=== PATIENT | male | born 1955 | race African-American/Black ===

== ENCOUNTER 2021-09-25 08:18 | Inpatient (IN) | payer MEDICARE, OTHER ==
[~2021-09-25] VITALS: Ht 175.3 cm; Wt 68.6 kg
[~2021-09-25 08:18] MED LIST: LISI2.5T47
[2021-09-25 09:15] LABS: Basophils # (auto) 0 10 ^3/uL (0-0.2); Basophils % (auto) 0.5 % (0.0-2.0); Eosinophils # (auto) 0.1 10 ^3/uL (0-0.8); Eosinophils % (auto) 1.4 % (0.0-7.0); Hematocrit 42.1 % (41.0-53.0); Hemoglobin 14.3 g/dL (13.5-17.5); Lymphocytes # (auto) 1.2 10 ^3/uL (0.4-5.4); Lymphocytes % (auto) 17.9 % (10.0-50.0); Mean Corpuscular Hemoglobin 28.6 pg (28.0-32.0); Mean Corpuscular Hgb Conc. 34.1 g/dL (32.0-36.0); Monocytes # (auto) 0.8 10 ^3/uL (0-1.3); Monocytes % (auto) 11.3 % (0.0-12.0); Neutrophils # (auto) 4.6 10 ^3/uL (1.6-8.6); Neutrophils % (auto) 68.9 % (37.0-80.0); Nucleated Red Blood Cells % 0.2 %; Red Blood Cells 5.01 10^6/uL (4.5-5.90); Red Cell Distribution Width 14.9 % (11.8-14.3); White Blood Cell 6.6 10^3/uL (4.4-10.8)
[2021-09-25 09:27] LABS: INR 1.03 (0.9-1.15); Partial Thromboplastin Time 27.1 sec (23.6-33.0)
[2021-09-25 09:31] LABS: Albumin 3.8 g/dL (3.4-5.0); BUN/Creatinine Ratio 10.7; Calcium 8.8 mg/dL (8.5-10.1); Magnesium 2.5 mg/dL (1.6-2.6)
[2021-09-25 09:34] LABS: Bilirubin, Total 0.6 mg/dL (0.2-1.0); Total Protein 7.8 g/dL (6.4-8.2)
[2021-09-25] MEDS: MAGNESIUM SULFATE 1GM/100ML 100 ML IV SCH ×2 (14:10→15:17)
[2021-09-25] MEDS ORDERED: MORPHINE SULFATE INJ 2 MG/ml SYRG IV PRN (15:30)
[2021-09-25] MEDS ORDERED: NITROGLYCERIN 0.4 MG SL TAB SL PRN (15:30)
[2021-09-25] MEDS ORDERED: ONDANSETRON HCL 4 MG/2 ML VIAL IV PRN ×2 (15:30→16:45)
[2021-09-25 15:31] LABS: Urine Bacteria NONE SEEN /hpf (None Seen); Urine Blood 2+ /uL (Negative); Urine Mucus FEW (None Seen); Urine Specific Gravity 1.021 (1.001-1.035); Urine WBC <1 /hpf (0 - 3)
[2021-09-25] MEDS ORDERED: ATORVASTATIN 20 MG TAB PO ONE (16:45)
[2021-09-25] MEDS ORDERED: BENAZEPRIL HCL 10 MG TAB PO ONE (16:45)
[2021-09-25] MEDS ORDERED: ASPirin 81 mg TAB PO ONE (16:45)
[2021-09-25] MEDS ORDERED: DOCUSATE SOD 100 MG CAP PO PRN (16:45)
[2021-09-25] MEDS ORDERED: HYDROcodone-ACET 5/325MG TAB PO PRN (16:45)
[2021-09-25 17:17] LABS: Magnesium 2.3 mg/dL (1.6-2.6); Phosphorus 3.1 mg/dL (2.5-4.90)
[2021-09-25] MEDS: ATORVASTATIN 20 MG TAB PO SCH (18:09)
[2021-09-25 20:06] LABS: INR 1.03 (0.9-1.15); Partial Thromboplastin Time 26.8 sec (23.6-33.0)
[2021-09-25 23:03] VITALS: BP 143/83
[2021-09-26 04:51] VITALS: BP 130/78
[2021-09-26 07:00] LABS: Basophils # (auto) 0 10 ^3/uL (0-0.2); Basophils % (auto) 0.5 % (0.0-2.0); Eosinophils # (auto) 0.1 10 ^3/uL (0-0.8); Eosinophils % (auto) 2.2 % (0.0-7.0); Lymphocytes # (auto) 1.2 10 ^3/uL (0.4-5.4); Lymphocytes % (auto) 17.9 % (10.0-50.0); Mean Corpuscular Hemoglobin 28.7 pg (28.0-32.0); Mean Corpuscular Hgb Conc. 34.2 g/dL (32.0-36.0); Mean Corpuscular Volume 84.1 fL (80.0-100.0); Monocytes # (auto) 0.6 10 ^3/uL (0-1.3); Monocytes % (auto) 9.9 % (0.0-12.0); Neutrophils # (auto) 4.5 10 ^3/uL (1.6-8.6); Neutrophils % (auto) 69.5 % (37.0-80.0); Nucleated Red Blood Cells % 0.1 %; Red Blood Cells 5.23 10^6/uL (4.5-5.90); Red Cell Distribution Width 14.9 % (11.8-14.3); White Blood Cell 6.5 10^3/uL (4.4-10.8)
[2021-09-26 07:11] LABS: INR 1.03 (0.9-1.15); Partial Thromboplastin Time 26.9 sec (23.6-33.0)
[2021-09-26 07:16] LABS: Potassium 3.8 mmol/L (3.5-5.1)
[2021-09-26 07:27] LABS: Albumin 3.5 g/dL (3.4-5.0); BUN/Creatinine Ratio 10.5; Bilirubin, Total 0.5 mg/dL (0.2-1.0); CRP High Sensitivity 0.32 mg/dL (< 0.3); Magnesium 2.4 mg/dL (1.6-2.6); Phosphorus 3.3 mg/dL (2.5-4.90); Thyroid Stimulating Hormone 0.61 uIU/mL (0.358-3.74); Total Protein 7.8 g/dL (6.4-8.2); Uric Acid 5.4 mg/dL (3.5-7.2)
[2021-09-26 08:00] VITALS: BP 128/63
[2021-09-26] MEDS: ASPirin 81 mg TAB PO SCH (09:29)
[2021-09-26] MEDS: BENAZEPRIL HCL 10 MG TAB PO SCH (09:30)
[2021-09-26] MEDS: ENOXAPARIN SOD 40 MG/0.4 ML SYRINGE SC SCH (09:31)
[2021-09-26] MEDS ORDERED: FAMOTIDINE (10MG/ML) 2ML VL IV SCH (10:00)
[2021-09-26] MEDS ORDERED: TAMSULOSIN HYDROCHLORIDE 0.4 MG CAP PO ONE (11:15)
[2021-09-26 12:00] VITALS: BP 116/68
[2021-09-26] MEDS: FAMOTIDINE 20 MG TAB PO SCH (12:11)
[2021-09-26 16:00] VITALS: BP 127/82
[2021-09-26 17:06] LABS: Alcohol, Urine < 3.0 mg/dL (0-10); Amphetamine Screen, Urine NEGATIVE (NEGATIVE); Barbiturate Scree,Urine NEGATIVE (NEGATIVE); Benzodiazephine Screen, Urine NEGATIVE (NEGATIVE); Cocaine Screen, Urine NEGATIVE (NEGATIVE); Opiate Scree,Urine NEGATIVE (NEGATIVE); Phencyclidine Screen, Urine NEGATIVE (NEGATIVE); Protein, Urine 18.7 mg/dL (0.0-11.9)
[2021-09-26 17:14] LABS: Cannabinoid Screen, Urine POSITIVE (NEGATIVE)
[2021-09-26 22:00] VITALS: BP 129/74
[2021-09-26] MEDS: ATORVASTATIN 20 MG TAB PO SCH (23:04)
[2021-09-27 04:00] VITALS: BP 156/94
[2021-09-27] MEDS: hydrALAZINE HCL 20 MG/ML VL IV PRN (05:46)
[2021-09-27 05:57] LABS: Cholesterol 130 mg/dL (< 200); HDL Cholesterol 101 mg/dL (40-59); LDL Cholesterol 25 mg/dL (< 100); Triglycerides 41 mg/dL (< 150)
[2021-09-27] MEDS ORDERED: ADENOSINE 60 MG in GIVE UN-DILUTED 0 ML IV ONE (08:07)
[2021-09-27] MEDS: ASPirin 81 mg TAB PO SCH (08:49)
[2021-09-27] MEDS: BENAZEPRIL HCL 10 MG TAB PO SCH (08:49)
[2021-09-27] MEDS: FAMOTIDINE 20 MG TAB PO SCH (08:50)
[2021-09-27] MEDS: ACETAMINOPHEN 325 MG TAB PO PRN (08:50)
[2021-09-27] MEDS: ENOXAPARIN SOD 40 MG/0.4 ML SYRINGE SC SCH (08:51)
[2021-09-27 09:00] VITALS: BP 172/98
[2021-09-27 10:22] VITALS: BP 155/94
[2021-09-27 13:00] VITALS: BP 162/99
[2021-09-27] MEDS: LORazepam 0.5 MG TAB PO PRN (13:52)
[2021-09-27 17:00] VITALS: BP 125/78
[2021-09-27] MEDS: TAMSULOSIN HYDROCHLORIDE 0.4 MG CAP PO SCH (17:24)
[2021-09-27] MEDS: ATORVASTATIN 20 MG TAB PO SCH (21:53)
[2021-09-27 22:00] VITALS: BP 126/91
[2021-09-28] VITALS (7 sets, daily range): BP systolic 146–177; BP diastolic 88–109
[2021-09-28] MEDS: hydrALAZINE HCL 20 MG/ML VL IV PRN ×2 (05:01→14:04)
[2021-09-28] MEDS: ACETAMINOPHEN 325 MG TAB PO PRN ×2 (05:48→14:04)
[2021-09-28] MEDS: MORPHINE SULFATE INJ 2 MG/ml SYRG IV PRN (06:25)
[2021-09-28] MEDS: BENAZEPRIL HCL 10 MG TAB PO SCH (10:09)
[2021-09-28] MEDS: ASPirin 81 mg TAB PO SCH (10:09)
[2021-09-28] MEDS: FAMOTIDINE 20 MG TAB PO SCH (10:09)
[2021-09-28] MEDS: ENOXAPARIN SOD 40 MG/0.4 ML SYRINGE SC SCH (10:09)
[2021-09-28] MEDS: LORazepam 0.5 MG TAB PO PRN (16:40)
[2021-09-28] MEDS: TAMSULOSIN HYDROCHLORIDE 0.4 MG CAP PO SCH (18:26)
[2021-09-28] MEDS: ZOLPIDEM TARTRATE 5 MG TAB PO PRN (22:00)
[2021-09-28] MEDS: ATORVASTATIN 20 MG TAB PO SCH (22:00)
[2021-09-29] VITALS (11 sets, daily range): BP systolic 111–168; BP diastolic 69–111
[2021-09-29] MEDS: ACETAMINOPHEN 325 MG TAB PO PRN (03:44)
[2021-09-29] MEDS: hydrALAZINE HCL 20 MG/ML VL IV PRN (05:56)
[2021-09-29 06:17] LABS: Basophils # (auto) 0 10 ^3/uL (0-0.2); Basophils % (auto) 0.3 % (0.0-2.0); Eosinophils # (auto) 0.1 10 ^3/uL (0-0.8); Eosinophils % (auto) 1.3 % (0.0-7.0); Hemoglobin 13.7 g/dL (13.5-17.5); Lymphocytes # (auto) 1.2 10 ^3/uL (0.4-5.4); Lymphocytes % (auto) 16.3 % (10.0-50.0); Mean Corpuscular Hemoglobin 28.5 pg (28.0-32.0); Mean Corpuscular Hgb Conc. 34.2 g/dL (32.0-36.0); Mean Corpuscular Volume 83.4 fL (80.0-100.0); Monocytes # (auto) 0.7 10 ^3/uL (0-1.3); Monocytes % (auto) 9.9 % (0.0-12.0); Neutrophils # (auto) 5.2 10 ^3/uL (1.6-8.6); Neutrophils % (auto) 72.2 % (37.0-80.0); Nucleated Red Blood Cells % 0.1 %; Red Blood Cells 4.79 10^6/uL (4.5-5.90); Red Cell Distribution Width 14.7 % (11.8-14.3); White Blood Cell 7.2 10^3/uL (4.4-10.8)
[2021-09-29 06:33] LABS: BUN/Creatinine Ratio 16.2; Calcium 8.9 mg/dL (8.5-10.1); Potassium 4.2 mmol/L (3.5-5.1)
[2021-09-29 06:43] LABS: INR 1.01 (0.9-1.15); Partial Thromboplastin Time 27.8 sec (23.6-33.0)
[2021-09-29] MEDS: MORPHINE SULFATE INJ 2 MG/ml SYRG IV PRN (07:00)
[2021-09-29] MEDS: LORazepam 0.5 MG TAB PO PRN (07:24)
[2021-09-29] MEDS ORDERED: cloNIDine HCL 0.1 MG TAB PO ONE (09:30)
[2021-09-29] MEDS: ASPirin 81 mg TAB PO SCH (09:53)
[2021-09-29] MEDS: BENAZEPRIL HCL 10 MG TAB PO SCH (09:56)
[2021-09-29] MEDS: ENOXAPARIN SOD 40 MG/0.4 ML SYRINGE SC SCH (09:58)
[2021-09-29] MEDS ORDERED: IODIXANOL 320MG/ML 100ML BTL IV ONE (12:55)
[2021-09-29] MEDS ORDERED: LIDOCAINE 2%HCL (LOCAL ANESTH.) INJ 10ml MDV ONE (12:55)
[2021-09-29] MEDS ORDERED: ANGIOMAX 250 MG VIAL IV ONE (13:01)
[2021-09-29] MEDS ORDERED: MIDAZOLAM HCL 2MG/2ML 2ml VIAL (1mg/ml) ONE (13:01)
[2021-09-29] MEDS ORDERED: fentaNYL CITRATE 100 MCG/2 ML VL ONE (13:01)
[2021-09-29] MEDS ORDERED: SODIUM CHL 0.9% 0 ML ONE (13:02)
[2021-09-29] MEDS ORDERED: VERAPAMIL 2.5MG/ML INJ 2ML VIAL IV ONE (13:10)
[2021-09-29] MEDS ORDERED: HEPARIN SODIUM (PORCINE) 5000 UNITS/ML 1ML VIAL ONE (13:10)
[2021-09-29] MEDS: TAMSULOSIN HYDROCHLORIDE 0.4 MG CAP PO SCH (18:27)
[2021-09-29] MEDS: ZOLPIDEM TARTRATE 5 MG TAB PO PRN (21:46)
[2021-09-29] MEDS: ATORVASTATIN 20 MG TAB PO SCH (21:46)
[2021-09-30] MEDS ORDERED: guaiFENesin-DM 100/10mg/5ml SYR PO PRN (00:45)
[2021-09-30 05:00] VITALS: BP 141/92
[2021-09-30 05:41] VITALS: BP 141/92
[2021-09-30 08:57] VITALS: BP 136/83
[2021-09-30] MEDS ORDERED: TAM04C PO (09:56)
[2021-09-30] MEDS ORDERED: METO25TA5 PO (09:56)
[2021-09-30] MEDS ORDERED: ASPI-463 PO (09:56)
[2021-09-30] MEDS ORDERED: ZOLP5TAB PO (09:56)
[2021-09-30] MEDS: ASPirin 81 mg TAB PO SCH (10:00)
[2021-09-30] MEDS: BENAZEPRIL HCL 10 MG TAB PO SCH (11:10)
[2021-09-30] MEDS: ENOXAPARIN SOD 40 MG/0.4 ML SYRINGE SC SCH (11:11)
[2021-09-30 11:50] VITALS: BP 136/83
[2021-09-30] MEDS: LORazepam 0.5 MG TAB PO PRN (12:15)
[2021-09-30] MEDS: hydrALAZINE HCL 20 MG/ML VL IV PRN (12:15)
[2021-09-30] MEDS: ACETAMINOPHEN 325 MG TAB PO PRN ×2 (13:08→14:43)
[2021-09-30 13:28] VITALS: BP 150/92
== END 2021-09-30 15:03 | disposition home or self-care (01) | DRG 287 ==
LOC: ER 08:18 → TELE 15:28 → TELE-WESTW 22:16
PROVIDERS: ADMIT Hospitalist; ATTEND Family Medicine
PROC: B211YZZ Fluoroscopy of Multiple Coronary Arteries using Other Contrast (ICD-10-PCS; principal; 2021-09-29)
PROC: 4A023N7 Measurement of Cardiac Sampling and Pressure, Left Heart, Percutaneous Approach (ICD-10-PCS; 2021-09-29)
PROC: B215YZZ Fluoroscopy of Left Heart using Other Contrast (ICD-10-PCS; 2021-09-29)
DX: I16.0 Hypertensive urgency (principal); I10 Essential (primary) hypertension; R00.1 Bradycardia, unspecified; Z20.822 Contact with and (suspected) exposure to COVID-19; F12.90 Cannabis use, unspecified, uncomplicated; E78.5 Hyperlipidemia, unspecified; N40.0 Benign prostatic hyperplasia without lower urinary tract symptoms; F17.290 Nicotine dependence, other tobacco product, uncomplicated; Z72.89 Other problems related to lifestyle
CPT/HCPCS: 36415; 71046; 78452; 80048; 80053; 80061; 80307; 81001; 82550; 82728; 83036; 83615; 83690; 83735; 83880; 84100; 84156; 84439; 84443; 84484; 84550; 85025; 85379; 85610; 85652; 85730; 86141; 87040; 87086; 93005; 93017; 93306; 93458; 93970; 96365; 96366; 99152; G0378; J0153; J2001; J2250; J2405; Q9967

== ENCOUNTER 2021-10-03 09:22 | Inpatient (IN) | payer MEDICARE, OTHER ==
[~2021-10-03] VITALS: Ht 175.3 cm; Wt 64.8 kg
[~2021-10-03 09:22] MED LIST changes: +ASPI-463 PO; +METO25TA5 PO; +TAM04C PO; +ZOLP5TAB PO
[2021-10-03] MEDS ORDERED: LABETALOL HCL 5 MG/ML 4ML SYRINGE IV ONE (09:45)
[2021-10-03 09:55] LABS: Urine Bacteria NONE SEEN /hpf (None Seen); Urine Blood 1+ /uL (Negative); Urine Specific Gravity 1.006 (1.001-1.035); Urine WBC <1 /hpf (0 - 3)
[2021-10-03 10:24] LABS: Basophils # (auto) 0.1 10 ^3/uL (0-0.2); Basophils % (auto) 0.9 % (0.0-2.0); Eosinophils # (auto) 0.1 10 ^3/uL (0-0.8); Eosinophils % (auto) 1.7 % (0.0-7.0); Hematocrit 41.4 % (41.0-53.0); Hemoglobin 13.7 g/dL (13.5-17.5); Lymphocytes # (auto) 1.4 10 ^3/uL (0.4-5.4); Lymphocytes % (auto) 20.8 % (10.0-50.0); Mean Corpuscular Hemoglobin 28.3 pg (28.0-32.0); Mean Corpuscular Hgb Conc. 33.1 g/dL (32.0-36.0); Mean Corpuscular Volume 85.6 fL (80.0-100.0); Monocytes # (auto) 0.9 10 ^3/uL (0-1.3); Monocytes % (auto) 13.5 % (0.0-12.0); Neutrophils # (auto) 4.1 10 ^3/uL (1.6-8.6); Neutrophils % (auto) 63.1 % (37.0-80.0); Nucleated Red Blood Cells % 0.1 %; Red Blood Cells 4.84 10^6/uL (4.5-5.90); Red Cell Distribution Width 14.3 % (11.8-14.3); White Blood Cell 6.5 10^3/uL (4.4-10.8)
[2021-10-03] MEDS ORDERED: hydrALAZINE HCL 20 MG/ML VL IV ONE (10:30)
[2021-10-03 10:46] LABS: Calcium 8.8 mg/dL (8.5-10.1); Potassium 4.8 mmol/L (3.5-5.1)
[2021-10-03 10:53] LABS: Albumin 3.5 g/dL (3.4-5.0); BUN/Creatinine Ratio 16.5; Bilirubin, Total 0.4 mg/dL (0.2-1.0); Total Protein 7.8 g/dL (6.4-8.2)
[2021-10-03] MEDS ORDERED: DOCUSATE CALCIUM 240 MG CAP PO PRN (12:45)
[2021-10-03] MEDS ORDERED: NITROGLYCERIN 0.4 MG SL TAB SL PRN (12:45)
[2021-10-03] MEDS ORDERED: MORPHINE SULFATE INJ 2 MG/ml SYRG IV PRN (12:45)
[2021-10-03] MEDS ORDERED: ACETAMINOPHEN 500 MG TAB PO PRN (12:45)
[2021-10-03] MEDS ORDERED: LORazepam 0.5 MG TAB PO ONE (16:30)
[2021-10-03] MEDS: MORPHINE SULFATE INJ 2 MG/ml SYRG IV PRN (20:06)
[2021-10-03] MEDS: ONDANSETRON HCL 4 MG/2 ML VIAL IV PRN (20:06)
[2021-10-03] MEDS: LABETALOL HCL 5 MG/ML 4ML SYRINGE IV PRN (23:21)
[2021-10-03] MEDS: LORazepam 0.5 MG TAB PO PRN (23:22)
[2021-10-04 05:00] VITALS: BP 132/82
[2021-10-04 05:42] LABS: Basophils # (auto) 0 10 ^3/uL (0-0.2); Basophils % (auto) 0.7 % (0.0-2.0); Eosinophils # (auto) 0.1 10 ^3/uL (0-0.8); Eosinophils % (auto) 2.1 % (0.0-7.0); Hematocrit 36.7 % (41.0-53.0); Hemoglobin 12.3 g/dL (13.5-17.5); Lymphocytes # (auto) 1.2 10 ^3/uL (0.4-5.4); Lymphocytes % (auto) 20.9 % (10.0-50.0); Mean Corpuscular Hemoglobin 28.5 pg (28.0-32.0); Mean Corpuscular Hgb Conc. 33.4 g/dL (32.0-36.0); Mean Corpuscular Volume 85.4 fL (80.0-100.0); Monocytes # (auto) 0.7 10 ^3/uL (0-1.3); Monocytes % (auto) 11.7 % (0.0-12.0); Neutrophils # (auto) 3.8 10 ^3/uL (1.6-8.6); Neutrophils % (auto) 64.6 % (37.0-80.0); Nucleated Red Blood Cells % 0.2 %; Red Cell Distribution Width 14.6 % (11.8-14.3); White Blood Cell 5.8 10^3/uL (4.4-10.8)
[2021-10-04 06:08] LABS: Potassium 3.8 mmol/L (3.5-5.1)
[2021-10-04 06:16] LABS: Albumin 2.9 g/dL (3.4-5.0); BUN/Creatinine Ratio 16.2; Bilirubin, Total 0.4 mg/dL (0.2-1.0); Calcium 8.2 mg/dL (8.5-10.1); Total Protein 6.3 g/dL (6.4-8.2)
[2021-10-04 08:10] VITALS: BP 172/99
[2021-10-04] MEDS: MORPHINE SULFATE INJ 2 MG/ml SYRG IV PRN (08:59)
[2021-10-04] MEDS: ONDANSETRON HCL 4 MG/2 ML VIAL IV PRN (08:59)
[2021-10-04] MEDS: LABETALOL HCL 5 MG/ML 4ML SYRINGE IV PRN ×2 (09:00→18:12)
[2021-10-04] MEDS: PANTOPRAZOLE 40 MG TAB PO SCH (09:22)
[2021-10-04] MEDS ORDERED: ENOXAPARIN SOD 40 MG/0.4 ML SYRINGE SC SCH (10:00)
[2021-10-04] MEDS ORDERED: NIFEdipine ER 30 MG TAB PO ONE (11:30)
[2021-10-04] MEDS ORDERED: TRIAMTERENE/HCTZ 37.5/25 MG CAP/TAB PO ONE (11:30)
[2021-10-04 11:55] VITALS: BP 148/91
[2021-10-04 16:15] VITALS: BP 164/94
[2021-10-04] MEDS: TAMSULOSIN HYDROCHLORIDE 0.4 MG CAP PO SCH (18:04)
[2021-10-04] MEDS: LORazepam 0.5 MG TAB PO PRN (21:56)
[2021-10-04 22:00] VITALS: BP 118/73
[2021-10-05 05:02] VITALS: BP 115/77
[2021-10-05 05:30] LABS: Calcium 9.2 mg/dL (8.5-10.1)
[2021-10-05 09:00] VITALS: BP 127/85
[2021-10-05] MEDS: MORPHINE SULFATE INJ 2 MG/ml SYRG IV PRN (09:52)
[2021-10-05] MEDS: ONDANSETRON HCL 4 MG/2 ML VIAL IV PRN (09:52)
[2021-10-05] MEDS: NIFEdipine ER 30 MG TAB PO SCH (09:58)
[2021-10-05] MEDS: PANTOPRAZOLE 40 MG TAB PO SCH (09:58)
[2021-10-05] MEDS: TRIAMTERENE/HCTZ 37.5/25 MG CAP/TAB PO SCH (09:58)
[2021-10-05] MEDS ORDERED: MAGNESIUM OXIDE 400 MG TAB PO ONE (10:30)
[2021-10-05 13:00] VITALS: BP 145/89
[2021-10-05 17:00] VITALS: BP 141/91
[2021-10-05] MEDS: TAMSULOSIN HYDROCHLORIDE 0.4 MG CAP PO SCH (17:08)
[2021-10-05 22:00] VITALS: BP 113/77
[2021-10-05] MEDS: MAGNESIUM OXIDE 400 MG TAB PO SCH (22:44)
[2021-10-05] MEDS: LORazepam 0.5 MG TAB PO PRN (22:44)
[2021-10-06 04:53] LABS: BUN/Creatinine Ratio 17.1; Calcium 8.9 mg/dL (8.5-10.1); Magnesium 2.3 mg/dL (1.6-2.6); Potassium 3.9 mmol/L (3.5-5.1)
[2021-10-06 05:00] VITALS: BP 122/84
[2021-10-06 09:00] VITALS: BP 121/89
[2021-10-06] MEDS: MAGNESIUM OXIDE 400 MG TAB PO SCH (09:45)
[2021-10-06] MEDS: TRIAMTERENE/HCTZ 37.5/25 MG CAP/TAB PO SCH (09:45)
[2021-10-06] MEDS: NIFEdipine ER 30 MG TAB PO SCH (09:46)
[2021-10-06] MEDS: PANTOPRAZOLE 40 MG TAB PO SCH (09:46)
[2021-10-06] MEDS ORDERED: TRIA37.56 PO (09:48)
[2021-10-06] MEDS ORDERED: MAGN241.4 PO (09:48)
[2021-10-06] MEDS ORDERED: NIFE1TAB31 PO (09:48)
[2021-10-06 11:52] VITALS: BP 138/92
[2021-10-06 13:00] VITALS: BP 139/97
== END 2021-10-06 13:00 | disposition home or self-care (01) | DRG 305 ==
LOC: ER 09:22 → TELE 12:54 → TELE-CENTR 22:34
PROVIDERS: ADMIT Family Medicine; ATTEND Internal Medicine
DX: I16.1 Hypertensive emergency (principal); I10 Essential (primary) hypertension; N40.0 Benign prostatic hyperplasia without lower urinary tract symptoms; R07.89 Other chest pain; R25.2 Cramp and spasm; Z20.822 Contact with and (suspected) exposure to COVID-19
CPT/HCPCS: 36415; 71045; 80048; 80053; 81001; 83735; 84443; 84484; 85025; 93005; 96374; 99291; G0378; J2405; J3490